=== PATIENT | male | born 1950 | race Caucasian/White ===

== ENCOUNTER → 2016-12-04 | Outpatient (CLI) | payer MEDICARE, OTHER | LOC: GMAB 11:13 | PROVIDERS: ATTEND Family Medicine | DX: I10 Essential (primary) hypertension (principal); Z12.5 Encounter for screening for malignant neoplasm of prostate | CPT/HCPCS: 84443; G0103 ==

== ENCOUNTER 2017-10-14 05:55 | Day surgery (SDC) | payer MEDICARE, OTHER ==
[2017-10-14] MEDS ORDERED: MIDAZOLAM INJ 2 MG/2 ML VIAL ONE (07:03)
[2017-10-14] MEDS ORDERED: PROPARACAINE 0.5% OPHTH SOL 15 ML BTTL ONE (09:20)
[2017-10-14] MEDS ORDERED: PROPARACAINE 0.5% OPHTH SOL 15 ML BTTL LEFT_EYE ONE ×3 (09:23→10:10)
[2017-10-14] MEDS ORDERED: TROP 1%/CYCLOPEN 1%/PHENYL 2% DROPS OPHTH ONE (09:23)
[2017-10-14] MEDS ORDERED: TOBRAMYCIN SULF 0.3 % OPHTH OINT 1 APPLIC LEFT_EYE ONE (09:23)
[2017-10-14] MEDS ORDERED: LIDOCAINE 1% PF 2 ML AMP INJ ONE (10:17)
[2017-10-14] MEDS ORDERED: BRIMONIDINE 0.2% OPHTH DROPS LEFT_EYE ONE ×2 (10:21→10:31)
[2017-10-14] MEDS ORDERED: TOBRAMYCIN SULF 0.3 % OPHT SOL 1 DROP LEFT_EYE ONE ×2 (10:21→10:31)
[2017-10-14] MEDS ORDERED: DEXAMETHASONE 0.1% OPHTH SOL 1 DROP LEFT_EYE ONE ×2 (10:21→10:31)
[2017-10-14 15:36] VITALS: O2SAT 100
[2017-10-14 15:44] VITALS: BP 141/71; TEMP 97.5
== END 2017-10-14 11:10 | disposition home or self-care (01) ==
LOC: AMB 05:55
PROVIDERS: ATTEND Ophthalmology
DX: H25.12 Age-related nuclear cataract, left eye (principal); I10 Essential (primary) hypertension; J44.9 Chronic obstructive pulmonary disease, unspecified; F17.210 Nicotine dependence, cigarettes, uncomplicated; C90.00 Multiple myeloma not having achieved remission; Z79.82 Long term (current) use of aspirin; Z79.899 Other long term (current) drug therapy
CPT/HCPCS: 66984; J2250

== ENCOUNTER 2017-10-28 06:14 | Day surgery (SDC) | payer MEDICARE, OTHER ==
[2017-10-28] MEDS ORDERED: TROP 1%/CYCLOPEN 1%/PHENYL 2% DROPS ONE (06:38)
[2017-10-28] MEDS ORDERED: LEVALBUTEROL NEBS 1.25 MG/3 ML VIAL NEB ONE (08:16)
[2017-10-28] MEDS: TOBRAMYCIN SULF 0.3 % OPHT SOL 1 DROP RIGHT_EYE ONE ×2 (08:21→09:44)
[2017-10-28] MEDS: PROPARACAINE 0.5% OPHTH SOL 15 ML BTTL ONE ×2 (08:21→09:30)
[2017-10-28] MEDS ORDERED: MIDAZOLAM INJ 2 MG/2 ML VIAL ONE (09:26)
[2017-10-28] MEDS ORDERED: LIDOCAINE 1% PF 2 ML AMP INJ ONE (09:34)
[2017-10-28] MEDS ORDERED: BRIMONIDINE 0.2% OPHTH DROPS RIGHT_EYE ONE (09:45)
[2017-10-28] MEDS ORDERED: DEXAMETHASONE 0.1% OPHTH SOL 1 DROP RIGHT_EYE ONE (09:45)
[2017-10-28 10:38] VITALS: BP 138/75; TEMP 98.7; O2SAT 97
== END 2017-10-28 10:25 | disposition home or self-care (01) ==
LOC: AMB 06:14
PROVIDERS: ATTEND Ophthalmology
DX: H25.11 Age-related nuclear cataract, right eye (principal); I10 Essential (primary) hypertension; J44.9 Chronic obstructive pulmonary disease, unspecified; F17.200 Nicotine dependence, unspecified, uncomplicated; Z79.82 Long term (current) use of aspirin; Z79.899 Other long term (current) drug therapy
CPT/HCPCS: 00142; 66984; 94640; J2250; J7614

== ENCOUNTER → 2017-11-29 | Outpatient (CLI) | payer MEDICARE, OTHER | END | disposition home or self-care (01) | LOC: LAB.O 12:05 | PROVIDERS: ATTEND Internal Medicine Hematology & Oncology | DX: C90.02 Multiple myeloma in relapse (principal) ==

== ENCOUNTER → 2018-01-20 | Outpatient (CLI) | payer MEDICARE, OTHER | LOC: GMAB 10:26 | PROVIDERS: ATTEND Family Medicine | DX: I10 Essential (primary) hypertension (principal); E78.2 Mixed hyperlipidemia; Z12.5 Encounter for screening for malignant neoplasm of prostate | CPT/HCPCS: 84443; G0103 ==

== ENCOUNTER → 2018-01-22 | Outpatient (CLI) | payer MEDICARE, OTHER ==
--- NOTE | 2018-01-22 15:27 | CT ---
Chest CT without intravenous contrast HISTORY: COPD COMPARISON: Chest CT from August 05, 2012 and July 01, 2014 TECHNIQUE: Routine noncontrast chest CT protocol. Image reformations in coronal and sagittal planes. Imaging was performed with automated exposure protocol to minimize radiation dose. FINDINGS: Lungs are stably aerated bilaterally. Noncalcified nodular density in right lower lobe, directly posterior to the major fissure, now measures 1.2 x 1.5 cm. In 2013 this finding measured 1.1 x 1.5 cm. In 2011 study it measured 1.0 x 1.0 cm in comparable span. This finding continues to exhibit mildly lobular but well defined contours, without internal calcification. No new concerning mass nor nodularity in remainder of either lung. No pneumothorax, airspace consolidation, interstitial change, bronchiectasis nor pleural effusion in either lung. No concerning thoracic lymphadenopathy. Cardiac dimensions are within normal limits without pericardial effusion. Thoracic aorta is normal in caliber without aneurysmal dilatation. Maintained bony alignment in thorax. There is however interval appearance of increased degenerative endplate deformities and large Schmorl's node in superior T12 endplate. Limited visualization of upper abdomen demonstrate small calcified gallstone. IMPRESSION: 1. Interval stability of benign-appearing noncalcified nodule in right lower lobe of lung since 2013 study. 2. No new concerning interstitial process in either lung. 3. No pathologic thoracic lymphadenopathy 4. Interval appearance of increased degenerative endplate changes and Schmorl's node in superior T12 endplate. 5. Cholelithiasis Electronically signed by: Serge Turk MD 01/22/2018 3:16 PM [employer]ED [employer]
== END ==
LOC: CT 14:00
PROVIDERS: ATTEND Family Medicine
DX: J44.1 Chronic obstructive pulmonary disease with (acute) exacerbation (principal); R91.1 Solitary pulmonary nodule; K80.80 Other cholelithiasis without obstruction

== ENCOUNTER → 2018-04-15 | Outpatient (CLI) | payer MEDICARE, OTHER ==
--- NOTE | 2018-04-15 10:51 | US ---
EXAM DESCRIPTION: Abdomen,Complete CLINICAL HISTORY: RUQ PAIN COMPARISON: None Available. TECHNIQUE: Complete abdominal ultrasound FINDINGS: Visualized portions of the pancreas are unremarkable. No peripancreatic fluid. Bowel gas obscures some areas. Normal caliber of the aorta. Normal appearance of the inferior vena cava. Liver parenchyma is homogeneous in texture with normal echogenicity. No liver mass or intrahepatic bile duct dilatation. No liver surface irregularity. Normal appearance of hepatic veins and portal vein. Gallbladder appears prominent with multiple intraluminal stones which appear to be freely mobile with change in patient position. Sonographic Pitts sign was reported as negative. No gallbladder wall thickening. Common bile duct is normal in caliber measuring 3.9 mm. The right kidney measures 9 cm in length. Mildly increased renal cortical echogenicity. The renal cortex appears diffusely thinned. No right renal mass, shadowing stone or cyst. There is no hydronephrosis. Spleen is normal in size. No focal splenic lesion. The left kidney measures 9.11 cm in length. Mildly increased renal cortical echogenicity. The renal cortical thickness appears decreased at the lower pole. No left renal mass, shadowing stone or cyst. There is no hydronephrosis. IMPRESSION: Gallstones without other changes to suggest acute cholecystitis. Hyperechoic kidneys. No hydronephrosis. Electronically signed by: Chano Draper MD 04/15/2018 10:50 AM CDT
== END ==
LOC: US 07:56
PROVIDERS: ATTEND Surgery
DX: R10.11 Right upper quadrant pain (principal); K80.20 Calculus of gallbladder without cholecystitis without obstruction

== ENCOUNTER 2018-04-24 05:59 | Day surgery (SDC) | payer MEDICARE, OTHER ==
--- NOTE | 2018-04-22 16:19 | RAD ---
EXAM DESCRIPTION: Chest,2 Views CLINICAL HISTORY: 67 years Male, preop COMPARISON: None available. TECHNIQUE: PA and lateral radiographs of the chest were obtained. FINDINGS: Trachea is midline.The cardiomediastinal silhouette is normal in size. The pulmonary vasculature is within normal limits.The lungs are clear with no acute consolidation.No evidence of pleural effusions.No evidence of pneumothorax. IMPRESSION: No acute cardiopulmonary process. Electronically signed by: Natacha Gilman MD 04/22/2018 4:17 PM CDT
[2018-04-24] MEDS ORDERED: DEXAMETHASONE INJ 10 MG/ML VIAL ONE (07:00)
[2018-04-24] MEDS ORDERED: METOCLOPRAMIDE HCL INJ 10 MG/2 ML VIAL ONE (07:00)
[2018-04-24] MEDS ORDERED: PROPOFOL 200 MG/20 ML VIAL IV ONE (07:00)
[2018-04-24] MEDS ORDERED: raNITIdine HCL INJ 25 MG/ML VIAL ONE (07:00)
[2018-04-24] MEDS ORDERED: ePHEDrine SULF 50 MG/ML ONE (07:00)
[2018-04-24] MEDS ORDERED: LIDOCAINE 1% 10 ML VIAL INJ ONE (07:00)
[2018-04-24] MEDS ORDERED: SODIUM CHL 0.9% 100ML MINI-BAG 100 ML IVPB ONE (07:11)
[2018-04-24] MEDS ORDERED: LACTATED RINGERS 0 ML ONE (07:11)
[2018-04-24] MEDS ORDERED: ceFAZolin SODIUM 1 GM VIAL ONE (07:11)
[2018-04-24] MEDS ORDERED: ELECTROLYTE-A 1,000 ML IVS ONE ×2 (07:29→10:24)
[2018-04-24] MEDS ORDERED: fentaNYL CITRATE INJ 50 MCG/ML AMP ONE ×2 (07:34→10:03)
[2018-04-24] MEDS ORDERED: ROCURONIUM BROMIDE 10 MG/ML VIAL ONE (07:34)
[2018-04-24] MEDS: BUPIVACAINE 0.25% W/EPI 50 ML VIAL INJ ONE ×2 (08:40→08:48)
[2018-04-24] MEDS: HEPARIN SODIUM (PORCINE) 10,000 UNITS/ML VIAL ONE ×2 (08:40→08:48)
[2018-04-24] MEDS ORDERED: SUGAMMADEX SODIUM 200 MG/2 ML VIAL IV ONE (09:46)
[2018-04-24] MEDS ORDERED: metroNIDAZOLE IV PREMIX 500MG 100 ML IVPB ONE (10:02)
[2018-04-24] MEDS ORDERED: METRONIDAZOLE 500 MG/100 ML IVPB ONE (10:06)
--- NOTE | 2018-04-24 10:22 | OP ---
DATE OF PROCEDURE: 04/24/18 PREOPERATIVE DIAGNOSIS: 1. Symptomatic cholelithiasis. 2. Renal insufficiency. 3. Multiple myeloma. POSTOPERATIVE DIAGNOSIS: 1. Symptomatic cholelithiasis. 2. Renal insufficiency. 3. Multiple myeloma. 4. Chronic cholecystitis. 5. Left lower quadrant inflammatory process, probably diverticulitis. PROCEDURE: 1. Laparoscopic cholecystectomy with intraoperative cholangiography using fluoroscopy. SURGEON: Marcelino Urena MD. DRY ROASTER: None. ANESTHESIA: Local infiltration of 0.25% Marcaine with epinephrine and general endotracheal anesthesia. INDICATION: The patient is a 67 male who has had several episodes of right upper quadrant pain associated usually with fatty foods, also some gas. In the last few days, he has had some left lower quadrant crampy pain. He has had very hard stools and this was felt to be just obstipation since the patient had no fever and no leukocytosis. He was brought to the Surgical Suite today for cholecystectomy after the risks, benefits and alternatives to the procedure were discussed and accepted. FINDINGS: The patient's gallbladder was dilated, somewhat thickened wall. Intraoperative cholangiography revealed free flow into the duodenum with no filling defects or strictures noted. There was an extremely long cystic duct. There was an inflammatory process in the left lower quadrant. The bowel was firm to palpation and there was some adhesion to the anterior abdominal wall that was quite loose and easily divided just by simple pushing with a blunt forceps. DESCRIPTION OF PROCEDURE: After adequate general endotracheal anesthesia was obtained, the patient was prepped and draped in the usual sterile manner. Surgical time-out was taken. The infraumbilical area was infiltrated with 0.25 % Marcaine with epinephrine. A curvilinear incision was fashioned and carried down through the subcutaneous tissue to the midline fascia using blunt dissection. Retractors were placed. Traction sutures were placed on either side of the midline. A small incision was made in the midline fascia and the peritoneum was opened bluntly. Jaja trocar was introduced under direct vision into the abdominal cavity and fixed in place with the 20 mL balloon. CO2 was then insufflated until a pressure of 12 mmHg was reached and the abdomen was tympanitic in all four quadrants. When this was done, the laparoscope was introduced. The abdomen was inspected with the previously noted findings. The patient was then placed in reverse Trendelenburg position, turned to the left side. The upper abdominal ports were placed under direct vision. The gallbladder was grasped, retracted anteriorly and laterally. The neck of the gallbladder was retracted laterally. The triangle of Calot was then explored with the cystic duct and cystic artery identified and isolated. The cystic duct was hemoclipped once proximally. The cystic artery was hemoclipped twice proximally and once distally. A small incision was made in the cystic duct. The cholangiogram catheter was introduced through a separate stab wound in the right upper quadrant, introduced into the cystic duct and clipped in place. Cholangiograms were then taken using fluoroscopy which revealed free flow into the duodenum with no filling defects or strictures noted. When this was done, the cystic duct catheter was removed. The cystic duct was hemoclipped three times distally and divided between the hemoclips. The cystic artery was divided. The gallbladder was then dissected free from the gallbladder bed of the liver using electrocautery. Two other small arterial vessels were identified and clipped. The gallbladder was removed from the infraumbilical port site in the usual manner under direct vision. When this was done, the subhepatic space and subphrenic space were irrigated copiously with saline. The effluent was noted to be clear. The lidia hepatis was inspected and no bleeding or bile leak was identified. The gallbladder bed of the liver was dry. The effluent was noted to be clear. At this point, the patient was placed in the Trendelenburg position. The left lower quadrant was explored. As noted, the gentle probing felt this part of the colon to be firm. It was gently dissected free from the anterior abdominal wall with just gentle dissection. When this was done, the upper abdominal ports were removed and good hemostasis was noted. At this point, the CO2, the laparoscope and the infraumbilical port were removed. The infraumbilical port site fascia was approximated with a single [id number] suture of 0 Vicryl. Subcutaneous tissue was irrigated with saline. Skin edges were approximated with 4-0 Vicryl subcuticular sutures, benzoin and Steri-Strips. Sterile dressings were applied. The patient was awakened and taken to the Recovery Room in good and stable condition. Estimated blood loss was less than 25 mL. All sponge, needle and instrument counts were correct. #[id number] [facility]
[2018-04-24 10:51] VITALS: BP 130/73; TEMP 98.2; O2SAT 95
[2018-04-24] MEDS ORDERED: levoFLOXacin 500 MG TAB ONE (11:01)
[2018-04-24] MEDS ORDERED: HYDROcodone 5MG/APAP 325MG 1 EA TAB ONE (11:08)
== END 2018-04-24 11:50 | disposition home or self-care (01) ==
LOC: AMB 05:59
PROVIDERS: ATTEND Surgery
DX: K80.10 Calculus of gallbladder with chronic cholecystitis without obstruction (principal); C90.00 Multiple myeloma not having achieved remission; K92.9 Disease of digestive system, unspecified; I12.9 Hypertensive chronic kidney disease with stage 1 through stage 4 chronic kidney disease, or unspecified chronic kidney disease; N18.4 Chronic kidney disease, stage 4 (severe); D69.6 Thrombocytopenia, unspecified; D64.9 Anemia, unspecified; K21.9 Gastro-esophageal reflux disease without esophagitis; F17.200 Nicotine dependence, unspecified, uncomplicated; Z79.899 Other long term (current) drug therapy
CPT/HCPCS: 00790; 36415; 47563; 71046; 76000; 80053; 81001; 85025; 88304; J0690; J1100; J1644; J2765; J2780; J3010; J3490; J7050

== ENCOUNTER → 2019-02-26 | Outpatient (CLI) | payer MEDICARE, OTHER | LOC: GMAE 11:42 | PROVIDERS: ATTEND Family Medicine | DX: I10 Essential (primary) hypertension (principal); Z12.5 Encounter for screening for malignant neoplasm of prostate | CPT/HCPCS: 84443; G0103 ==

== ENCOUNTER → 2019-03-05 | Outpatient (CLI) | payer MEDICARE, OTHER ==
--- NOTE | 2019-03-05 16:56 | US ---
EXAM DESCRIPTION: Aorta: Ultrasound. CLINICAL HISTORY: ENCOUNTER FOR SCREENING FOR OTHER DISORDER COMPARISON: CT scan of the chest without contrast on the same visit. TECHNIQUE: Transcutaneous scanning: Two-dimensional and Doppler modes. FINDINGS: Abdominal aorta diameter - Proximal: 2.7 x 2.6 x 2.4 cm. Mid: 2.1 x 2.1 x 2.0 cm. Distal: 1.9 x 1.7 cm. Common Iliac diameter - Right: 8.3 mm. Left: 6.7 mm. Other: Unremarkable.. IMPRESSION: No abdominal aortic aneurysm or significant atherosclerotic plaque. Electronically signed by: Beto Tinsley MD 03/05/2019 4:53 PM CDT
--- NOTE | 2019-03-05 17:17 | CT ---
EXAM DESCRIPTION: Chest w/o Contrast : Computed Tomography. 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 TECHNIQUE: Spiral-axial scans at 5 x 5 mm intervals through the lungs and thorax without IV contrast. 2.5 x 5 mm lung algorithm axial reconstructions. Coronal and sagittal 2.0 mm Mm reconstructions. No adverse reactions. Total Exam DLP: 6 9.12 mGy-cm. This exam was performed according to our departmental dose-optimization program which includes automated exposure control, adjustment of the mA and/or kV according to patient size and/or use of iterative reconstruction technique; to reduce radiation dose to as low as reasonably achievable (ALARA). Nodule measurements under 10 mm are given as mean value of 3 axes diameters. FINDINGS: Lungs and large airways: Again noted is a lobulated and circumscribed soft tissue mass in the anterior aspect of the medial right lower lobe abutting the major fissure. Densities approximately -3 Hounsfield units with no calcification. No definite spiculations. Dimensions are 1.7 x1.5 cm in the axial plane and 1.8 cm craniocaudal axis. On the prior study, the mass had Hounsfield density of -10, craniocaudal axis was 1.9 cm and transverse dimensions were 1.6 x 1.5 cm. Posterior and peripheral dilated airspaces in multiple pulmonary blebs predominantly in the lower lobes and more right than left. Minimal reticulations in the bilateral upper lobes. Pattern pleural parenchymal scars bilaterally. No other abnormal nodules or focal masses. No focal infiltrates. Other lung parenchymal findings are also stable since the prior study.. Pleural spaces: Bilateral minimal thickening predominantly in the bases as well as focal thickening. No pleural effusion or pneumothorax. Mediastinum and Yulia: Evaluation limited due to lack of IV contrast. Small nodes in the mediastinum and hilum. No large soft tissue masses. Great vessels and Heart: Evaluation limited due to lack of IV contrast. Aortic arch is ectatic with atherosclerotic calcification. Also seen in the descending aorta. Atherosclerotic calcification possible stents in the coronary arteries and brachiocephalic vessel calcification. Soft tissues of neck base, axillae, and chest wall: Evaluation limited due to lack of IV contrast. Normal sized lymph nodes. Upper abdomen: No fluid or free air or fatty stranding or fascial thickening in the included peritoneal space. Included spleen and adrenal glands are unremarkable. Atherosclerotic calcifications in the distal left renal artery. Surgical clips in the gallbladder fossa. Osseous structures: Large Schmorl's node in the superior T12 endplate stable. Minimal sternoclavicular arthrosis. No new lytic or blastic lesions. IMPRESSION: 1. Lobulated soft tissue mass with fatty density in the right lower lobe anteriorly stable in size since the prior study, most likely a hamartoma. Chronic multiple small blebs in the bilateral lower lobes more on the right. Bilateral stable pleural parenchymal scars with minimal reticulation in the upper lobes. No abnormal nodules, no new focal masses or new focal infiltrates. Electronically signed by: Beto Tinsley MD 03/05/2019 5:14 PM CDT
== END ==
LOC: US 08:30
PROVIDERS: ATTEND Family Medicine
DX: R91.1 Solitary pulmonary nodule (principal); Z13.89 Encounter for screening for other disorder

== ENCOUNTER 2019-09-15 16:53 | Emergency (ER) | payer MEDICARE, OTHER ==
[2019-09-15] MEDS ORDERED: MORPHINE SULFATE INJ 10 MG/ML VIAL ONE (17:02)
[2019-09-15] MEDS ORDERED: ONDANSETRON INJ 4 MG/2 ML VIAL ONE (17:02)
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
[2019-09-15] MEDS: MORPHINE SULFATE INJ 10 MG/ML VIAL IV ONE (17:13)
[2019-09-15] MEDS: SODIUM CHLORIDE 0.9% 1000ML 1,000 ML IVS ONE (17:16)
[2019-09-15] MEDS: ONDANSETRON INJ 4 MG/2 ML VIAL IV ONE (17:17)
--- NOTE | 2019-09-15 17:21 | RAD ---
EXAM DESCRIPTION: Chest,1 View CLINICAL HISTORY: 69 years Male, pain COMPARISON: Previous study January 26, 2019 TECHNIQUE: AP portable chest. FINDINGS: Heart size is prominent with normal pulmonary vascularity. No consolidating infiltrate. No pulmonary mass or worrisome nodule. No pneumothorax or pleural effusion. Bones are unremarkable. IMPRESSION: Prominent heart without congestive failure. Electronically signed by: Chano Draper MD 09/15/2019 5:15 PM CDT
[2019-09-15 17:46] VITALS: O2SAT 98
[2019-09-15 20:21] VITALS: BP 196/96; TEMP 98.5
== END 2019-09-15 20:21 | disposition home or self-care (01) ==
LOC: ER 16:53
DX: R07.2 Precordial pain (principal); R06.02 Shortness of breath; J44.9 Chronic obstructive pulmonary disease, unspecified; I25.10 Atherosclerotic heart disease of native coronary artery without angina pectoris; I48.91 Unspecified atrial fibrillation; N18.4 Chronic kidney disease, stage 4 (severe); F17.200 Nicotine dependence, unspecified, uncomplicated; I12.9 Hypertensive chronic kidney disease with stage 1 through stage 4 chronic kidney disease, or unspecified chronic kidney disease; Z79.899 Other long term (current) drug therapy; Z79.82 Long term (current) use of aspirin; Z85.79 Personal history of other malignant neoplasms of lymphoid, hematopoietic and related tissues
CPT/HCPCS: 71045; 80053; 83690; 83735; 84100; 84484; 85025; 85610; 85730; 93005; 94760; J2270; J2405; J7030

== ENCOUNTER → 2020-08-03 | Outpatient (CLI) | payer MEDICARE, OTHER ==
--- NOTE | 2020-08-04 11:33 | CT ---
Procedure: CT LUNG SCREENING Exam Date: August 03, 2020. Ordering Provider: Simone Garcia Clinical Indication: PERSONAL HISTORY OF TOBACCO DEPENDENCE . Current cigarette smoker. 50 pack year history. This patient meets eligibility criteria for low-dose CT lung cancer screening. Comparison: Regular Dose CT scan without contrast February 2019. Technique: Using a multislice scanner, sequential helical axial imaging was obtained in the thorax, 2.5 mm thickness, 2.5 mm separation, from the level of the thoracic inlet through the lung bases without IV contrast. A low dose protocol was utilized for BMI less than 30: BMI: 23.4. CTDI: 1.76 mGy. 120. kVp. 45 mA. DLP 70 mGy-cm. 2D sagittal and coronal reconstructed images, 6.0 mm thickness, were obtained. This exam was performed according to our departmental dose optimization program which includes use of automated exposure control, adjustment of the mA and/or kV according to patient size and/or use of iterative reconstruction technique. Nodule measurements under 10 mm are given as mean value of 3 axes diameters. FINDINGS: Lungs and large airways: Bilateral emphysematous parenchymal blebs predominantly in the upper lung brumfield. Posterior honeycombing subpleural bilateral lower lobes more on the right. More atelectasis on the left. Large lobulated solid nodule, 1.4 x 1.2 cm in a perifissural location along the medial right major fissure inferiorly, axial series 2, image 97. Not associated with calcification. Stable since the prior study. Bilateral scattered subpleural nodules less than 3 mm. These findings are stable since the prior study. No abnormal nodules and no new or focal infiltrates. Pleura and space: Focal and occasional diffuse pleural thickening mostly in the apices with no acute process. Mediastinum and tamia: evaluation limited by low dose technique and lack of IV contrast. Small lymph nodes. No interval change from prior study. No dominant soft tissue mass. Heart and great vessels: Coronary artery calcifications. Atherosclerotic calcifications aortic arch and several brachiocephalic vessels. Ectasia of the ascending aortic arch 3.7 cm diameter, stable since the prior study. Chest wall, lower neck, axillae: Evaluation also limited by same factors as described above. Axillary lymph nodes normal size. Upper abdomen: Evaluation limited by low-dose technique. Normal size and density of adrenal glands and spleen. Atherosclerotic calcifications aorta and left renal arterial branches. Surgical clips gallbladder fossa with no fluid. No free air or fluid in the included peritoneal space. Osseous structures: Evaluation limited by low dose MIP technique. Large Schmorl's node superior endplate T12. Minimal arthrosis in the shoulder clavicle sternal joints. IMPRESSION: 1. Large lobulated soft tissue mass abutting the right major fissure inferiorly without calcification, but most likely a hamartoma. Stable since the prior study. Emphysematous changes with blebs more prevalent in the upper lung brumfield. Scattered pleural thickening but no acute process. No new abnormal pulmonary nodule and no new mass. [facility] Best Practice Recommendations: please see below for Lung RADS category and FOLLOW-UP.* *Lung RADS category CATEGORY 2- Nodules with a very low likelihood (less than 1%) of becoming a clinically active cancer due to size or lack of growth. Nodules: Perifissural nodule(s) < 10 mm. (526mm3). Solid or part solid nodule(s) less than 6mm (113.1 mm3), new solid nodule less than 4mm (33.5 mm3). Ground glass nodule(s) less than 30mm (62479.2 mm3) or unchanged or slow growing ground glass nodule 30mm or greater. Cat 3 or 4 nodule unchanged for 3 or more months. FOLLOW-UP: Continue annual screening with a Low Dose Chest CT in 12 months for re-evaluation. Electronically signed by: Beto Tinsley MD 08/04/2020 11:31 AM CDT
== END ==
LOC: CT 10:29
PROVIDERS: ATTEND Family Medicine
DX: Z87.891 Personal history of nicotine dependence (principal); Z12.2 Encounter for screening for malignant neoplasm of respiratory organs; R91.8 Other nonspecific abnormal finding of lung field; J43.9 Emphysema, unspecified; J92.9 Pleural plaque without asbestos

== ENCOUNTER → 2020-09-13 | Outpatient (CLI) | payer MEDICARE, OTHER ==
--- NOTE | 2020-09-14 11:05 | CT ---
EXAM DESCRIPTION: Abdomen w/o Contrast: Computed Tomography. CLINICAL HISTORY: ABNORMAL LIVER FUNCTION COMPARISON: CT scan of the chest February [address] scan of the abdomen June 2014 TECHNIQUE: Spiral-axial scans at 2.5 x 2.5 mm intervals through the abdomen. Coronal and sagittal 2.0 mm reconstructions. No IV or oral contrast. Total DLP: 478 mGy - m2. This exam was performed according to our departmental dose-optimization program which includes automated exposure control, adjustment of the mA and/or kV according to patient size and/or use of iterative reconstruction technique; to reduce radiation dose to as low as reasonably achievable (ALARA). FINDINGS: Lung bases and pleura: Again noted is a lobulated mass right lower lobe abutting the medial right major fissure, approximately 1.5 x 1.2 cm, possible hamartoma. Stable appearance/density (fatty) and size. Posterior subpleural lower lobe honeycombing again noted and septal thickening. Upper Abdominal organs: Craniocaudal dimension of the liver 16.5 cm. Normal density. Normal density and size of the remaining organs no abnormal distention of the stomach. Pancreas/Gallbladder/Ducts: Surgical clips gallbladder fossa with no fluid. Cholelithiasis on the prior study. Minimal dilation common bile duct and pancreas negative. Kidneys: 2 mm radiodense stone superior right collecting system with bilateral atherosclerotic calcifications in the kidneys. 3 mm radiodense stone mid collecting system left kidney. No hydronephrosis bilaterally. Mesentery: No fatty stranding or inflammatory changes. No free air or fluid in the peritoneal space. Aorta: Moderate atherosclerotic calcification with narrowing of the distal lumen in the proximal common iliac arteries. Small Bowel: Included segments with no significant distention or air-fluid levels. Terminal Ileum/Cecum: Normal caliber. Appendix not seen. Colon: Gas and fecal matter in the included segments with no air-fluid levels or inflammatory changes. Spine: Old Schmorl's node and partial depression T12, stable since 2019. Hemangioma L3 vertebral body stable. L2-L3 disc space narrowing. Abdominal Wall/Back Soft Tissues: Minimal diastases of the umbilicus with no bowel incarceration. IMPRESSION: 1. Borderline enlargement of the liver with no focal lesions. No ascites. 2. Bilateral radiodense stones in the kidneys less than 5 mm diameter with no hydronephrosis. Ureters are unremarkable. 3. Minimal constipation. Stable pulmonary mass possibly hamartoma, right lower lobe. No follow-up recommended. Minimal dilation common bile duct physiologic with cholecystectomy. Electronically signed by: Beto Tinsley MD 09/14/2020 11:04 AM CDT
== END ==
LOC: CT 08:50
PROVIDERS: ATTEND Internal Medicine Hematology & Oncology
DX: R94.5 Abnormal results of liver function studies (principal); R16.0 Hepatomegaly, not elsewhere classified; N20.0 Calculus of kidney; K59.00 Constipation, unspecified; R91.8 Other nonspecific abnormal finding of lung field

== ENCOUNTER → 2020-10-05 | Outpatient (CLI) | payer MEDICARE, OTHER | LOC: LAB.O 09:44 | PROVIDERS: ATTEND Internal Medicine Gastroenterology | DX: R94.5 Abnormal results of liver function studies (principal); C90.00 Multiple myeloma not having achieved remission; R10.10 Upper abdominal pain, unspecified ==